=== PATIENT | male | born 1950 | race Caucasian/White ===

== ENCOUNTER 2016-09-14 07:36 | Inpatient (IN) | payer MEDICARE, OTHER ==
[2016-09-02 15:48] LABS: INTERNATIONAL NORMAL RATI 1.1 UNITS (-); PARTIAL THROMBO TIME 30.5 SEC (22.5-37.2); PROTIME (NOT ORD) 13.9 SEC (12.0-14.5)
[2016-09-02 15:52] LABS: ASCORBIC ACID (UR NOT ORDER) NEG (NEG); BILIRUBIN, URINE NEGATIVE (NEG); KETONE, URINE 20 MG/DL (NEG); LEUKOCYTE ESTERASE(NOT OR SMALL (NEG); WBC (NOT ORDERED) (RFLEX) 12 (0-5)
[2016-09-02 16:04] LABS: A/G RATIO 1.1 (0.7-1.9); ALBUMIN 4.3 G/DL (3.5-5.0); ALKALINE PHOSPHATASE 149 U/L (45-117); BUN (BLOOD UREA NITROGEN) 20 MG/DL (6-23); CALCIUM, SERUM 9.3 MG/DL (8.5-10.4); CHLORIDE, SERUM 101 MMOL/L (96-112); CO2 (CARBON DIOXIDE) 28 MMOL/L (24-34); GFR AFRICAN AMERICAN 90 ML/MIN (>=60); GFR NON AFRICAN AMERICAN 78 ML/MIN (>=60); GLOBULIN 3.8 G/DL (2.5-4.1); GLUCOSE, SERUM 77 MG/DL (60-99); POTASSIUM, SERUM 4.4 MMOL/L (3.5-5.3); SGOT(AST) 23 U/L (5-40); SGPT(ALT) 28 U/L (5-65); SODIUM, SERUM 138 MMOL/L (135-148); TOTAL BILIRUBIN 0.5 MG/DL (0-1.2); TOTAL PROTEIN 8.1 G/DL (6.0-8.5)
[2016-09-07 12:08] LABS: HEMATOCRIT 51.7 % (40.0-51.0); HEMOGLOBIN 15.1 g/dL (13.6-17.8); MANUAL DIFF YES %; MEAN CORPUS HGB CONC 29.2 g/dL (32.0-36.0); MEAN CORPUSCULAR HEMOGLOB 23.6 pg (26.0-34.0); MEAN CORPUSCULAR VOLUME 80.9 fL (80-100); NUCLEATED RED BLOOD CELLS 0.3 /100WBC (0-0); PLATELET COUNT 394 10/3/uL (150-400); RBC DISTRIBUTION WIDTH 18.5 % (12.0-16.0); RED CELL COUNT 6.39 10/6/uL (4.7-6.1); WHITE BLOOD CELLS 29.3 10/3/uL (4.5-10.5)
[2016-09-07 13:11] LABS: ANISOCYTOSIS 1+ (5-10/OIF) (0-5/OIF); BAND NEUTROPHILS 5 %; EOSINOPHILS 3 %; EOSINOPHILS ABSOLUTE (CALC) 0.88 10/3/uL (0.0-0.53); HYPOCHROMIA 1+ (3-10/OIF) (0-2/OIF); LYMPHOCYTES 12 %; LYMPHOCYTES ABSOLUTE (CALC) 3.52 10/3/uL (0.67-4.30); MICROCYTES 1+ (5-10/OIF) (0-5/OIF); MONOCYTES 1 %; MONOCYTES ABSOLUTE (CALC) 0.29 10/3/uL (0.21-1.20); NEUTROPHILS ABSOLUTE (CALC) 24.61 10/3/uL (2.02-8.40); PLATELET ESTIMATE ADQ (ADEQUATE); SEGMENTED NEUTROPHIL (0) 79 %; TOTAL NUCLEATED CELLS 100
[2016-09-07 13:12] LABS: GIANT PLATELET RARE; POLYCHROMASIA 1+ (2-5/OIF) (0-1/OIF)
--- NOTE | ~2016-09-14 | OP ---
Record Of Operation [facility] [address] [place]. [address] NAME: REMA CARRENO : 48 STATUS : ADM IN PAT#: [id number] AGE: 66 ADM/REG DATE : 09/14/16 MR#: [id number] REPORT SERV DATE: 09/14/16 DICTATED BY: HARMAN PIKE DATE: 09/14/16 REPORT STATUS : Draft TRANSCRIBED BY: MODL DATE: 09/14/16 DATE OF PROCEDURE: 09/14/2016 PREOPERATIVE DIAGNOSIS: Left hip arthritis. POSTOPERATIVE DIAGNOSIS: Left hip arthritis. PROCEDURE PERFORMED: Left total hip arthroplasty. SURGEON: Harman Pike M.D. EQUINE SCIENCE INSTRUCTOR: Kris Khan. ANESTHESIA: Per anesthetic record with local infusion. PROCEDURE IN DETAIL: The patient is clearly identified and after obtaining informed consent is brought to the operating room at [facility] where here the patient is induced under general anesthesia and subsequently placed in the left lateral decubitus position. This concluded, the thigh and flank are prepped and draped in the usual manner. A time-out procedure successfully performed and after registering the knee and marking the anatomy through an approximately 4.5 incision, the skin is divided. The fascial planes are divided. The lateral fascia then is divided. Hemostasis is obtained with electrocautery and a Charnley retractor is applied. The piriformis is identified, tagged, divided, and retracted over the sciatic nerve felt deep in the wound. At which point, the mini approach to the hip is formed with dividing the capsule in a mini approach with a cuff of tissues remaining at the femoral side to accomplish repair at the conclusion of the case. Dislocating the hip, end-stage arthritic changes are noted. The tissue surrounding the femoral neck are protected with the Hohmann retractor and the femoral neck cut is made according to preoperative templating. This concluded, the femoral head is removed. The acetabulum is exposed. The labral and fluvial tissues are removed and reaming is performed. Subsequently trialing with the appropriate trial, the permanent acetabular components placed with the Dinuba Sector. At which point, the acetabular trial component is then placed. The proximal femur is then addressed. The structures posteromedial to the greater trochanter are removed and this concluded the ashtyn-cutter canal finder lateralizer and reaming is performed. This concluded, broaching is performed and with excellent fit-fill and stability for the implant trialing is performed finding excellent leg length, stability, no impingement, good kickback, no push-pull, and the lesser trochanter palpably at the appropriate distance from the ischium when compared to preoperative templating. The trials were felt to be appropriate. These are all then removed and the permanent implants are then carefully applied uneventfully. Copious irrigation is then performed with same stability and findings noted after insertion. At which point, the joint then is carefully closed in layers including capsule, piriformis, lateral fascia, deep tissues, and skin. Aquacel dressing is applied and the patient is then allowed to awaken, is placed supine and is returned to the recovery room in stable condition having tolerated the procedure well. ESTIMATED BLOOD LOSS: 150 mL. Record Of Operation [facility] [id number] [facility] [place]. [address] NAME: REMA CARRENO : 48 STATUS : ADM IN [facility]#: [id number] AGE: 66 ADM/REG DATE : 09/14/16 MR#: [id number] REPORT SERV DATE: 09/14/16 DICTATED BY: HARMAN PIKE DATE: 09/14/16 REPORT STATUS : Draft TRANSCRIBED BY: LYNNE DATE: 09/14/16 FLUIDS: 1000 mL. TOURNIQUET TIME: None. PATHOLOGY: Sent specimen. MICROBIOLOGY: None. COMPLICATIONS: None. SPONGE AND NEEDLE COUNTS: Reportedly correct. ANTIBIOTICS: Administered appropriately preoperatively and ordered to be discontinued within 23 hours. IMPLANTS: DePuy hip system, femur Rush, size 6, standard +1.5/36 metal head. Acetabulum, Dinuba sector size 54 with a +4 neutral liner, and no screws. MALACHI/LYNNE Harman Pike M.D. / [id number] CC: Harman Pike M.D.
[~2016-09-14 07:36] MED LIST: ASA5GR PO; HYDREA PO; SYNTHROID200 MCG PO; Z100 PO
[2016-09-15 06:47] LABS: INTERNATIONAL NORMAL RATI 1.2 UNITS (-); PROTIME (NOT ORD) 14.7 SEC (12.0-14.5)
[2016-09-15 06:48] LABS: MEAN CORPUS HGB CONC 28.8 g/dL (32.0-36.0); MEAN CORPUSCULAR HEMOGLOB 23.5 pg (26.0-34.0); MEAN CORPUSCULAR VOLUME 81.4 fL (80-100); NUCLEATED RED BLOOD CELLS 0.4 /100WBC (0-0); PLATELET COUNT 364 10/3/uL (150-400); RBC DISTRIBUTION WIDTH 18.8 % (12.0-16.0)
[2016-09-15 06:50] LABS: HEMATOCRIT 39.9 % (40.0-51.0); HEMOGLOBIN 11.5 g/dL (13.6-17.8); WHITE BLOOD CELLS 34.6 10/3/uL (4.5-10.5)
[2016-09-15 06:52] LABS: CHLORIDE, SERUM 101 MMOL/L (96-112); CREATININE 0.93 MG/DL (0.70-1.30); GFR AFRICAN AMERICAN 98 ML/MIN (>=60); GFR NON AFRICAN AMERICAN 85 ML/MIN (>=60); MANUAL DIFF YES %; POTASSIUM, SERUM 4.1 MMOL/L (3.5-5.3); SODIUM, SERUM 135 MMOL/L (135-148)
[2016-09-15 06:55] LABS: BUN (BLOOD UREA NITROGEN) 15 MG/DL (6-23); CO2 (CARBON DIOXIDE) 23 MMOL/L (24-34); GLUCOSE, SERUM 139 MG/DL (60-99)
[2016-09-15 07:24] LABS: ANISOCYTOSIS 1+ (5-10/OIF) (0-5/OIF); BAND NEUTROPHILS 1 %; BASOPHILS 3 %; BASOPHILS ABSOLUTE (CALC) 1.04 10/3/uL (0.0-0.16); LYMPHOCYTES 3 %; LYMPHOCYTES ABSOLUTE (CALC) 1.04 10/3/uL (0.67-4.30); MICROCYTES 1+ (5-10/OIF) (0-5/OIF); NEUTROPHILS ABSOLUTE (CALC) 32.52 10/3/uL (2.02-8.40); PLATELET ESTIMATE ADQ (ADEQUATE); SEGMENTED NEUTROPHIL (0) 93 %; TOTAL NUCLEATED CELLS 100
[2016-09-15 07:25] LABS: HYPOCHROMIA 1+ (3-10/OIF) (0-2/OIF); POLYCHROMASIA 1+ (2-5/OIF) (0-1/OIF)
[2016-09-16 04:49] LABS: HEMOGLOBIN 9.3 g/dL (13.6-17.8)
[2016-09-16 04:52] LABS: HEMATOCRIT 32.4 % (40.0-51.0)
[2016-09-16 04:54] LABS: INTERNATIONAL NORMAL RATI 1.3 UNITS (-)
[2016-09-16] MEDS ORDERED: ZOFRAN4 PO (10:11)
[2016-09-16] MEDS ORDERED: OXYCOD PO (10:11)
[2016-09-16] MEDS ORDERED: C5 PO (10:11)
[2017-03-04] MEDS ORDERED: ASAB PO (12:59)
[2017-03-04] MEDS ORDERED: DSS PO (13:00)
[2017-03-04] MEDS ORDERED: MVI PO (13:01)
[2017-03-04] MEDS ORDERED: FESO4 PO (13:01)
[2017-03-04] MEDS ORDERED: C5 PO (13:02)
[2017-03-04] MEDS ORDERED: NORCO1 TA2 PO (13:03)
[2017-03-17] MEDS ORDERED: JANTOVEN7.5 MG PO (16:45)
[2017-03-17] MEDS ORDERED: SYNTHROID200 MCG PO (16:48)
[2017-03-17] MEDS ORDERED: Z300 PO (16:49)
[2017-03-17] MEDS ORDERED: HYDREA PO (16:50)
[2017-03-17] MEDS ORDERED: NORCO1 TA2 PO (16:52)
[2017-03-17] MEDS ORDERED: ZOFRAN4 PO (16:54)
[2017-03-21] MEDS ORDERED: T PO (15:05)
[2017-03-21] MEDS ORDERED: OXYCOD PO (15:10)
[2017-03-21] MEDS ORDERED: LEVAQUIN750 MG PO (15:11)
[2017-03-21] MEDS ORDERED: FLAG500TAB PO (15:12)
[2017-03-21] MEDS ORDERED: ASA5GR PO (15:13)
[2017-03-21] MEDS ORDERED: REG5 PO (15:14)
[2017-03-21] MEDS ORDERED: TRANSSCOP TOP (15:14)
== END 2016-09-16 12:36 | disposition home or self-care (01) | DRG 470 ==
LOC: SDC/OF 07:36 → PACU 12:12 → 3JRC 13:36
PROVIDERS: Orthopaedic Surgery
PROC: 0SRB02A Replacement of Left Hip Joint with Metal on Polyethylene Synthetic Substitute, Uncemented, Open Approach (ICD-10-PCS; principal; 2016-09-14 09:30)
DX: M16.12 Unilateral primary osteoarthritis, left hip (principal); C94.6 Myelodysplastic disease, not elsewhere classified; Z28.21 Immunization not carried out because of patient refusal; M10.9 Gout, unspecified; E03.9 Hypothyroidism, unspecified; Z79.82 Long term (current) use of aspirin; Z79.899 Other long term (current) drug therapy
CPT/HCPCS: 36415; 71020; 72170; 80048; 80053; 81001; 85014; 85018; 85025; 85610; 85730; 86850; 86900; 86901; 87086; 87641; 88304; 88311; 88313; 88341; 88342; 93005; 97110-GP; 97150-GP; 97161-GP; 97165-GO; A9270-GY; C1776; J0690; J1170; J1885; J2250; J2274; J2405; J2710; J2795; J3010